=== PATIENT | female | born 1985 | race Caucasian/White ===

== ENCOUNTER 2016-06-14 10:16 | Emergency (ER) | payer MEDICAID ==
[~2016-06-14] VITALS: Ht 165.1 cm; Wt 111.1 kg
[2016-06-14 10:16] VITALS: BP_SYST 138
[2016-06-14 11:49] VITALS: BP_SYST 138
== END 2016-06-14 11:49 | disposition home or self-care (01) ==
LOC: SED 10:16
DX: J32.9 Chronic sinusitis, unspecified (principal); J02.9 Acute pharyngitis, unspecified; Z88.0 Allergy status to penicillin
CPT/HCPCS: 81025; 99283